=== PATIENT | male | born 1955 | race Hispanic/Latino ===

== ENCOUNTER 2017-07-01 13:29 | Inpatient (IN) | payer MEDICAID ==
[2017-07-01 14:55] LABS: BASO % 0.5 % (0.0-2.0); EOS % 0.3 % (0.0-4.0); HEMOGLOBIN 16.1 g/dL (12.0-18.0); LYMPH # 0.8 K/uL (1.0-4.3); LYMPH % 13.3 % (20.0-40.0); MEAN CELL VOLUME 96.7 fL (80.0-94.0); MEAN CORPUSCULAR HEMOGLOBIN 34.8 pg (27.0-31.0); MEAN PLATELET VOLUME 7.7 fL (7.2-11.7); MONO # 0.5 K/uL (0.0-0.8); MONO % 8.6 % (0.0-10.0); NEUT # 4.5 K/uL (1.8-7.0); NEUT % 77.3 % (50.0-75.0); RBC 4.61 Mil/uL (4.40-5.90); RED CELL DISTRIBUTION WIDTH 13.5 % (11.5-14.5); WHITE BLOOD COUNT 5.9 K/uL (4.8-10.8)
--- NOTE | 2017-07-01 15:01 | C.PDOC ---
History Of Present Illness 62 y/o male presents to ED requesting ETOH detox last used yesterday. Patient states he drinks daily and denies other drug use, suicidal ideation, homicidal ideation or any other complaints at this time. Time Seen by Provider: 07/01/17 13:46 Chief Complaint (Nursing): Substance Abuse History Per: Patient History/Exam Limitations: no limitations Onset/Duration Of Symptoms: Days Current Symptoms Are (Timing): Still Present Suicide/Self Injury Attempted (Context): None Modifying Factor(s): Alcohol Past Medical History Reviewed: Historical Data, Nursing Documentation, Vital Signs Vital Signs: Last Vital Signs Temp 98.2 F 07/01/17 13:39 Pulse 101 H 07/01/17 16:49 Resp 16 07/01/17 16:49 BP 136/77 07/01/17 16:49 Pulse Ox 98 07/01/17 16:49 - Medical History PMH: Anxiety, Depression Surgical History: No Surg Hx Family History: States: No Known Family Hx - Social History Hx Alcohol Use: Yes Hx Substance Use: No - Immunization History Hx Tetanus Toxoid Vaccination: No Hx Influenza Vaccination: No Hx Pneumococcal Vaccination: No Review Of Systems Constitutional: Negative for: Fever, Chills Cardiovascular: Negative for: Chest Pain Respiratory: Negative for: Shortness of Breath Gastrointestinal: Negative for: Nausea, Vomiting Skin: Negative for: Rash Psych: Negative for: Suicidal ideation, Withdrawal Physical Exam - Physical Exam Appears: Non-toxic, No Acute Distress Skin: Warm, Dry, No Rash Head: Atraumatic, Normacephalic Eye(s): bilateral: Normal Inspection Oral Mucosa: Moist Neck: Normal ROM, Supple Cardiovascular: Rhythm Regular, No Murmur Respiratory: Normal Breath Sounds, No Rales, No Rhonchi, No Wheezing Gastrointestinal/Abdominal: Soft, No Tenderness, No Guarding, No Rebound Extremity: Bilateral: Atraumatic Neurological/Psych: Oriented x3 ED Course And Treatment - Laboratory Results Result Diagrams: 07/01/17 14:52 07/01/17 14:52 O2 Sat by Pulse Oximetry: 94 (RA) Pulse Ox Interpretation: Normal Medical Decision Making Medical Decision Making: Labs ordered 1520 Labs reviewed, showing hyperglycemia and ketones in urine, no acidosis. Patient is known diabetic. Recommend continued use of DM medications. In my clinical judgment patient is medically cleared and stable for psychiatric admission. lock up worker contacted for evaluation. As per CW patient is to be admitted. Disposition - Disposition Disposition: HOSPITALIZED Disposition Time: 15:45 Condition: STABLE - POA Present On Arrival: None - Clinical Impression Clinical Impression: Alcohol dependence - PA / NURSE SPECIALIST / Resident Statement MD/DO has reviewed & agrees with the documentation as recorded. - Scribe Statement The provider has reviewed the documentation as recorded by the Scribsara Mccord All medical record entries made by the Scribe were at my direction and personally dictated by me. I have reviewed the chart and agree that the record accurately reflects my personal performance of the history, physical exam, medical decision making, and the department course for this patient. I have also personally directed, reviewed, and agree with the discharge instructions and disposition. Decision To Admit - Pt Status Changed To: Hospital Disposition Of: Inpatient - Admit Certification Admit to Inpatient:: After my assessment, the patient will require hospitalization for at least two midnights. This is because of the severity of symptoms shown, intensity of services needed, and/or the medical risk in this patient being treated as an outpatient. - InPatient: Physician Admission Certification: I certify that this patient requires 2 or more midnights of care for the following reason:: patient accepted to detox service for alcohol dependence - . Bed Request Type: Detox Admitting Physician: Shaun Mares Patient Diagnosis: Alcohol dependence
[2017-07-01 15:08] LABS: URINE BILIRUBIN NEGATIVE (NEGATIVE); URINE BLOOD NEGATIVE (NEGATIVE); URINE CLARITY Clear (Clear); URINE COLOR Yellow (YELLOW); URINE GLUCOSE (UA) 3+ mg/dL (Normal); URINE LEUKOCYTE ESTERASE NEG Leu/uL (Negative); URINE NITRATE NEGATIVE (NEGATIVE); URINE PROTEIN NEGATIVE (NEGATIVE); URINE UROBILINOGEN NORMAL mg/dL (0.2-1.0)
[2017-07-01 15:10] LABS: ALB/GLOB RATIO 1.5 (1.0-2.1); ALBUMIN 4.5 g/dL (3.5-5.0); ALT/SGPT 43 U/L (21-72); AST/SGOT 52 U/L (17-59); BLOOD UREA NITROGEN 9 mg/dL (9-20); CALCIUM 8.8 mg/dl (8.6-10.4); GFR AFRICAN-AMERICAN > 60; GFR NON-AFRICAN AMERICAN > 60
[2017-07-01 15:21] LABS: BARBITURATES, UR NEGATIVE (NEGATIVE); OPIATES, UR NEGATIVE (NEGATIVE); PHENCYCLIDINE, UR NEGATIVE (NEGATIVE)
[2017-07-01 15:38] LABS: BENZODIAZEPINES, UR POSITIVE (NEGATIVE)
--- NOTE | 2017-07-01 16:42 | PCM.BM ---
<Sepideh Ruano - Last Filed: 07/01/17 16:41> Treatment Plan Problems - Problems identified on initial assessmt Potential for alcohol withdrawal Date Initiated: 07/01/17 Time Initiated: 16:41 Assessment reference: NA Status: Active Priority: 1 Treatment assets and liabiliti Patient Assests: ADL independent, negotiates basic needs, cognitively intact Patient Liabilities: substance abuse (ETOH), medical problems (DM, Thyroid ) - Milieu Protocol Maintain good personal hygiene: daily Encourage regular showers, daily Remind patient to perform daily oral care, daily Assist patient to perform ADL's Conduct patient checks and document Observation sheet: Q15 minutes Maintain personal safety: every shift Educate patient to report safety concerns to staff, every shift Monitor environment for contraband/sharps Medication safety: Monitor for expected outcome, potential side effects: every shift, Assess barriers to learning: every shift, Assess readiness for medication education: every shift <Shaun Mares - Last Filed: 07/03/17 00:52> - Diagnosis (1) Alcohol dependence Status: Acute Interventions: 07/03/17 00:52 * Assess 7x/week regarding severity of withdrawal * Educate regarding risks, benefits, side effects and alternatives of medications * Use Motivational Interviewing for abstinence * Use CBT for relapse prevention * Medication management for withdrawal symptoms * Encourage medication assisted treatment * <Lacey Castano - Last Filed: 07/03/17 11:20> Family Contact Family involvement: Patient does not wish Family/SO involvement Family contact: Patient agrees to contact - Goals for Treatment Patient goals for treatment: Complete detox and transition to IOP and vivitrol maintenance. Discharge/Continuing Care - Education Needs Education Needs: Patient Medication, Patient Diagnosis/Disease Process, Patient Coping Skills, Patient Anger Management skills, Patient Placement options, Patient Community resources - Discharge Discharge Criteria: No longer exhibiting s/s of withdrawal, Reduction of target symptoms Discharge to:: Home, With Family - Treatment Team Participation Patient/Family/SO Statement: 07/03/17 11:20 "I wanna go on Vivitrol after this..." Discussed with Family/SO: No Was Patient/Family/SO present at Treatment Team Meeting: Yes
[2017-07-01] MEDS: Multiple Vitamins Tab PO SCH (16:49)
[2017-07-02] MEDS: Levothyroxine 25 MCG TAB PO SCH (05:34)
[2017-07-02] MEDS: Multiple Vitamins Tab PO SCH (09:31)
--- NOTE | 2017-07-02 13:53 | PCM.PSYCH ---
Initial Psychiatric Evaluation - Initial Psychiatric Evaluation Type of Admission: Voluntary Legal Status: Capacity Chief Complaint (in patient's own words): "I need a change, i need detox" History of Present Illness and Precipitating Events: 62y.o. 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 His daughter brought him for detox after a 10-14 day binder. The current gallardo he was one lasted about 2 weeks and he drank a liter of vodka each day. He has been drinking vodka, about a pint a day, for the last 15 years. He started drinking when a close friend to cope with grief. He used to use cocaine in the 80s, used to smoke marijuana, and denies other drug use including cigarette. He has detoxed 3 times and the most recent time was in August. He denies ever having seizures or hallucinations but does admit to agitation and tremors. He also went to rehab 2 times. His longest sobriety was about a year long. He does not attend AA and does not find it helpful. He has tried [facility] and finds it moderately helpful. About 5 years ago he was on Vivitrol injections and he said they were beneficial. He also tried Naltrexone for abstinence. His on 07/04/16 and he was very depressed following her . He was seen by psychiatry and put on Zoloft and has been compliant over the last year. He no longer sees this psychiatrist due to insurance issues. He also has anxiety which he takes ativan for as needed. Detox Hx: 3 previous - most recent in August Rehab Hx: 2 previous - [facility] Medical Hx: DM, Hypercholestrolemia, Insomnia Medications:metformin, glimiperide, levothyroxin, atrovostatin Psych Hx: depression, anxiety Fam Hx: NA Current Medications: Active Medications Generic Name Dose Route Start Last Admin Trade Name Freq PRN Reason Stop Dose Admin Chlordiazepoxide 25 mg 07/01/17 18:00 07/02/17 11:17 Librium PO 07/06/17 17:59 25 mg Q6H CHALO Administration Taper Chlordiazepoxide 25 mg 07/01/17 16:20 07/02/17 09:33 Librium PO 25 mg Q4H PRN Administration Alcohol Withdrawal Clonidine HCl 0.1 mg 07/01/17 16:20 07/01/17 18:18 Catapres PO 0.1 mg Q4H PRN Administration Symptoms of alcohol withdrawl Folic Acid 1 mg 07/01/17 16:30 07/02/17 09:31 Folic Acid PO 1 mg DAILY CHALO Administration Gabapentin 300 mg 07/01/17 18:00 07/02/17 13:28 Neurontin PO 300 mg TID CHALO Administration Glimepiride 4 mg 07/02/17 10:00 07/02/17 09:31 Amaryl PO 4 mg DAILY CHALO Administration Hydroxyzine HCl 25 mg 07/01/17 16:24 07/02/17 13:28 Atarax PO 25 mg Q6H PRN Administration Anxiety Ibuprofen 400 mg 07/01/17 16:24 Motrin Tab PO Q6H PRN Pain, moderate (4-7) Levothyroxine Sodium 25 mcg 07/02/17 06:30 07/02/17 05:34 Synthroid PO 25 mcg DAILY@0630 CHALO Administration Metformin HCl 1,000 mg 07/01/17 18:00 07/02/17 09:31 Glucophage PO 1,000 mg BID CHALO Administration Multivitamins 1 tab 07/01/17 16:30 07/02/17 09:31 Hexavitamin PO 1 tab DAILY CHALO Administration Sertraline HCl 100 mg 07/02/17 10:15 07/02/17 11:14 Zoloft PO 100 mg DAILY CHALO Administration Thiamine HCl 100 mg 07/01/17 16:30 07/02/17 09:31 Vitamin B1 Tab PO 100 mg DAILY CHALO Administration Trazodone HCl 50 mg 07/01/17 22:00 07/01/17 21:40 Desyrel PO 50 mg HS PRN Administration Insomnia Past Psychiatric History - Past Psychiatric History Pertinent Medical Hx (Current Medical&Sleep Prob, Allergies): Allergies Allergy/AdvReac Type Severity Reaction Status Date / Time No Known Allergies Allergy Verified 07/01/17 13:45 Atorvastatin [Lipitor] 10 mg PO DAILY 07/01/17 Buspirone HCl [Buspirone HCl] 10 mg PO TID 07/01/17 Empagliflozin [Jardiance] 25 mg PO DAILY 07/01/17 Gabapentin [Neurontin] 300 mg PO TID 07/01/17 Glimepiride [amaRYL] 4 mg PO DAILY 07/01/17 Hydroxyzine HCl 25 mg PO TID 07/01/17 Levothyroxine [Levoxyl] 0.025 mg PO DAILY 07/01/17 Lorazepam [Ativan] 0.5 mg PO TID 07/01/17 MetFORMIN [glucOPHAGE] 1,000 mg PO BID 07/01/17 Sertraline [Zoloft] 100 mg PO DAILY 07/01/17 Review of Systems - Constitutional Constitutional: absent: Chills, Sweats, Weakness - Gastrointestinal Gastrointestinal: absent: Abdominal Pain - Neurological Neurological: Tremor - Psychiatric Psychiatric: Abnormal Sleep Pattern, Anxiety, Depression Mental Status Examination - Personal Presentation Personal Presentation: Looks stated age - Affect Affect: Broad - Motor Activity Motor Activity: Calm - Reliability in Providing Information Reliability in Providing Information: Good - Speech Speech: Organized - Mood Mood: Depressed - Formal Thought Process Formal Thought Process: No Impairment - Obsessions/Compulsions Obsessions: No Compulsions: No - Cognitive Functions Orientation: Person, Place, Situation, Time Sensorium: Alert Attention/Concentration: Attentive Abstract Thinking: [place] Judgement: Intact, as evidence by: Insight regarding need for hospitalization Memory: Recent intact, as evidence by: Ability to recall events of the day, Remote intact, as evidenced by: Abilit to recall sig. life events - Risk Risk: Withdrawal - Strength & Assets Inventory Strength & Assets Inventory: Family support, Employment history, Life experience , Cooperative DSM 5 DX - DSM 5 DSM 5 Diagnosis: Alcohol Withdrawal Alcohol Use d/o - severe Anxiety d/o - unspecified Depression d/o - severe - Recommended/Plan of Treatment Treatment Recommendations and Plan of Treatment: Librium detox Gabapentin for augmentation As needed medications All risks, benefits and alternatives of the meds discussed, and the pt agreed and understood. Attend groups and activities Supportive therapy and psychoeducation [place] for abstinence CBT for relapse prevention Encourage MAT Refer to rehab or IOP, and self-help groups 34 min Projected ELOS: 4 days Prognosis: good with treatment Discharge Plan and Discharge Criteria: IOP - Smoking Cessation Smoking Cessation Initiated: No Reason for not providing: does not smoke
[2017-07-03] MEDS: Levothyroxine 25 MCG TAB PO SCH (06:02)
[2017-07-03] MEDS: Multiple Vitamins Tab PO SCH (09:19)
[2017-07-03 11:41] LABS: MAGNESIUM 1.4 mg/dL (1.6-2.3)
--- NOTE | 2017-07-03 14:08 | PCM.PYCHPN ---
Psychiatric Progress Note - Psychiatric Progress Note Patient seen today, length of contact: 17 minutes Patient Chief Complaint: "Im felling really good today" Problems Identified/Issues Discussed: The pt is seen, chart reviewed, case discussed with staff. The pt is compliant with medications and reports no side-effects. Symptoms improving and patient needs more time to stabilize. The patient didnt sleep well. He was up most of the night playing board games with another patient. He also stayed up all night eating snacks including pudding and orange juice. He has some anxiety this morning and is shaking. His blood sugar was elevated this morning up to 347 and he said he often has high blood sugars and often eats many sweets and carbs. He is slightly symptomatic with increased thirst and urination. He was educated on reducing sugar and carb intake to control his blood glucose.After care discussed, support and psychoeducation given. He plans find an IOP in [place] and speak with his PCP regarding Vivitrol injections. Medication Change: Yes (Detox changes daily) Medical Record Reviewed: Yes Mental Status Examination - Cognitive Function Orientation: Person, Place, Situation, Time Memory: Intact Attention: WNL Concentration: WNL Association: WNL Fund of Knowledge: WNL - Mood Mood: Depressed, Anxious - Affect Affect: Broad - Speech Speech: Appropriate - Language Language: Word Retrieval - Formal Thought Process Formal Thought Process: No Impairment - Suicidal Ideation Suicidal Ideation: No - Homicidal Ideation Homicidal Ideation: No Goal/Treatment Plan - Goal/Treatment Plan Need for Continued Stay: Remain at risks for inpatient hospitalization, Discharge may exacerbated symptoms Progress Toward Problem(s) and Goals/Treatment Plan: Librium detox Gabapentin for augmentation As needed medications All risks, benefits and alternatives of the meds discussed, and the pt agreed and understood. Attend groups and activities Supportive therapy and psychoeducation [place] for abstinence CBT for relapse prevention Encourage MAT Refer to rehab or IOP, and self-help groups Estimated Date of D/C: 07/05/17 - Smoking Cessation Smoking Cessation Initiated: No Reason for not providing: Doesnt smoke
[2017-07-04] MEDS: Levothyroxine 25 MCG TAB PO SCH (06:24)
[2017-07-04] MEDS: Multiple Vitamins Tab PO SCH (10:47)
--- NOTE | 2017-07-04 13:08 | PCM.PYCHPN ---
Psychiatric Progress Note - Psychiatric Progress Note Patient seen today, length of contact: 17 minutes Patient Chief Complaint: "I feel great" Problems Identified/Issues Discussed: The pt is seen, chart reviewed, case discussed with staff. The pt is compliant with medications and reports no side-effects. Symptoms improving and patient needs more time to stabilize. The patient slept really well after taking Seroquel. His shaking has improved and he has minimal withdrawal symptoms. He is in good spirits and says that leaving is "bittersweet " as he is ready to leave tomorrow but "scared to face reality" once he does. He is excited to leave tomorrow as he has a family gathering at his home. He has an appointment with his PCP on Friday for his Vivitrol injection and is going to [facility] on Friday. We discussed being discharged with a Naltrexone prescription to bridge him. After care discussed, support and psychoeducation given. Medication Change: Yes (Detox changes daily) Medical Record Reviewed: Yes Mental Status Examination - Cognitive Function Orientation: Person, Place, Situation, Time Memory: Intact Attention: WNL Concentration: WNL Association: WNL Fund of Knowledge: WNL - Mood Mood: Depressed, Anxious - Affect Affect: Broad - Speech Speech: Appropriate - Language Language: Word Retrieval - Formal Thought Process Formal Thought Process: No Impairment - Suicidal Ideation Suicidal Ideation: No - Homicidal Ideation Homicidal Ideation: No Goal/Treatment Plan - Goal/Treatment Plan Need for Continued Stay: Remain at risks for inpatient hospitalization, Discharge may exacerbated symptoms Progress Toward Problem(s) and Goals/Treatment Plan: Librium detox Gabapentin for augmentation As needed medications All risks, benefits and alternatives of the meds discussed, and the pt agreed and understood. Attend groups and activities Supportive therapy and psychoeducation [place] for abstinence CBT for relapse prevention Encourage MAT Refer to rehab or IOP, and self-help groups Estimated Date of D/C: 07/05/17 - Smoking Cessation Smoking Cessation Initiated: No Reason for not providing: Denies need
[2017-07-05 06:13] VITALS: RESP 18
[2017-07-05] MEDS: Levothyroxine 25 MCG TAB PO SCH (06:36)
[2017-07-05] MEDS: Multiple Vitamins Tab PO SCH (10:36)
--- NOTE | 2017-07-05 10:40 | PCM.PYCHDC ---
Mental Status Examination - Mental Status Examination Orientation: Person, Place, Situation, Time Memory: Intact Mood: Neutral Affect: Broad Speech: Appropriate Attention: WNL Concentration: WNL Association: WNL Fund of Knowledge: WNL Formal Thought Process: No Impairment Description of patient's judgement and insight: Pt is calm, and cooperative. I/J: GOOD /GOOD Psychotic Thoughts and Behaviors: DENIED Suicidal Ideation: No Current Homicidal Ideation?: No Plan: DENIED Discharge Summary - Discharge Note Reason for Hospitalization: 62y.o. 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 His daughter brought him for detox after a 10-14 day binder. The current gallardo he was one lasted about 2 weeks and he drank a liter of vodka each day. He has been drinking vodka, about a pint a day, for the last 15 years. He started drinking when a close friend to cope with grief. He used to use cocaine in the 80s, used to smoke marijuana, and denies other drug use including cigarette. He has detoxed 3 times and the most recent time was in August. He denies ever having seizures or hallucinations but does admit to agitation and tremors. He also went to rehab 2 times. His longest sobriety was about a year long. He does not attend AA and does not find it helpful. He has tried [facility] and finds it moderately helpful. About 5 years ago he was on Vivitrol injections and he said they were beneficial. He also tried Naltrexone for abstinence. His on 07/04/16 and he was very depressed following her . He was seen by psychiatry and put on Zoloft and has been compliant over the last year. He no longer sees this psychiatrist due to insurance issues. He also has anxiety which he takes ativan for as needed. Detox Hx: 3 previous - most recent in August Rehab Hx: 2 previous - [facility] Medical Hx: DM, Hypercholestrolemia, Insomnia Medications:metformin, glimiperide, levothyroxin, atrovostatin Psych Hx: depression, anxiety Fam Hx: NA Laboratory Data: Abnormal Lab Results 07/03/17 07/03/17 07/03/17 07:44 08:36 17:23 POC Glucose (mg/dL) 347 H 344 H 237 H 07/04/17 07/04/17 08:23 17:36 POC Glucose (mg/dL) 358 H 328 H Consultations:: List each consultation separately and include: 1. Reason for request. 2. Findings. 3. Follow-up Summary of Hospital Course include:: 1. Description of specific treatment plan utilized for patients during their course of treatmen. 2. Summarize the time- course for resolution of acute symptoms and/or regressed behaviors. 3. Describe issues identified and worked on during hospitalization. 4. Describe medication utilized. 5. Describe medical problems identified and treated. 6. Reassessment of suicide risk Summary of Hospital Course: The pt was admitted and started on detox treatment with psychotherapy, support, psychoeducation and medications. AR and CBT techniques were used. The pt was compliant with the treatment. The pt attended groups and activities, as well as milieu therapy. All the risks and benefits of medications were discussed and the patient understood and agreed. The pt improved with the treatment. Pt appreciate the treatment and care which was provided to him. At the time of d/c pt denied any depresive symptoms, manic symptoms. He denied any SI, HI, intent or plan. Pt denied any perceptual disturbances. He had behavioral issues. Psychoeducation was provided to the pt to be compliant with the medication, treatment plan and f/u plan after the discharge. After care discussed with the patient. time spend 25 minutes - Diagnosis (1) Alcohol dependence Status: Resolved - Final Diagnosis (DSM 5) Condition upon Discharge: STABLE DSM 5: Alcohol Withdrawal Alcohol Use d/o - severe Anxiety d/o - unspecified Depression d/o - severe Disposition: HOME/ ROUTINE Follow-up Treatment Plan: please see after care plan Prescriptions/Medication Reconciliation: chlordiazePOXIDE [Librium] 25 mg PO Q8H #2 cap Gabapentin [Neurontin] 300 mg PO TID #90 cap Glimepiride [amaRYL] 4 mg PO DAILY #30 tab hydrOXYzine HCl [Atarax] 25 mg PO BID PRN #60 tab PRN Reason: Anxiety Levothyroxine [Synthroid] 25 mcg PO DAILY@0630 #30 tab metFORMIN [glucOPHAGE] 1,000 mg PO BID #60 tab Naltrexone [Revia] 50 mg PO DAILY #30 tab QUEtiapine [Seroquel] 100 mg PO HS #30 tab Sertraline [Zoloft] 100 mg PO DAILY #30 tab traZODone [Desyrel] 100 mg PO HS PRN #30 tab PRN Reason: Insomnia - Smoking Cessation Smoking Cessation Medication prescribed: Yes - Antipsychotic Medications Pt discharged on 2 or more routine antipsychotic medications: No
[2017-07-05 11:37] VITALS: PULSE 88
[2017-07-05 13:45] VITALS: BP 134/83; TEMP 97.7; O2SAT 97
== END 2017-07-05 15:21 | disposition home or self-care (01) | DRG 426 ==
LOC: C.ER 13:29 → C.7D 16:23
PROVIDERS: ADMIT Psychiatry & Neurology Psychiatry; ATTEND Psychiatry & Neurology Psychiatry
DX: F32.9 Major depressive disorder, single episode, unspecified (principal); E11.65 Type 2 diabetes mellitus with hyperglycemia; F10.239 Alcohol dependence with withdrawal, unspecified; F41.9 Anxiety disorder, unspecified; F91.9 Conduct disorder, unspecified; Z87.891 Personal history of nicotine dependence; F19.10 Other psychoactive substance abuse, uncomplicated